=== PATIENT | male | born 1990 | race Caucasian/White ===

== ENCOUNTER → 2023-08-11 | Outpatient (REF) | payer BC | LOC: M LAB REF 13:50 | PROVIDERS: ATTEND Internal Medicine | DX: R19.7 Diarrhea, unspecified (principal) ==

== ENCOUNTER → 2023-08-13 | Outpatient (REF) | payer BC | LOC: M LAB REF 10:58 | PROVIDERS: ATTEND Internal Medicine | DX: R19.7 Diarrhea, unspecified (principal) ==

== ENCOUNTER → 2024-02-17 | Outpatient (CLI) | payer BC | LOC: M RAD 12:54 | PROVIDERS: ATTEND Internal Medicine | DX: R05.9 Cough, unspecified (principal) ==

== ENCOUNTER → 2024-04-14 | Outpatient (CLI) | payer BC | LOC: M RAD 15:29 | PROVIDERS: ATTEND Internal Medicine | DX: J32.9 Chronic sinusitis, unspecified (principal) ==